=== PATIENT | female | born 1995 | race Two or more races ===

== ENCOUNTER 2017-12-27 21:09 | Emergency (ER) | payer MEDICAID, OTHER ==
[2017-12-27 21:24] VITALS: BP 120/76
--- NOTE | 2017-12-27 21:27 | EDPHY ---
H & P Stated Complaint: cough x 4 days Time Seen by Provider: 12/27/17 21:12 HPI/ROS: Chief Complaint: Cough HPI: 22-year-old woman presenting with several days of sore throat, cough, subjective chills. Cough is productive of yellowish to greenish sputum occasionally. No shortness of breath. No chest pain. No nausea, vomiting, or diarrhea. No abdominal pain. No urinary urgency or frequency. No muscle aches or myalgias. ROS: 10 systems were reviewed and were negative except those elements noted in the HPI. PMH: Denies Social History: No smoking, no alcohol, no recreational drug use Family History: non-contributory Physical Exam: Gen: Awake, Alert, No Distress HEENT: Nose: no rhinorrhea Eyes: PERRLA, EOMI Mouth: Moist mucosa Neck: Supple, no JVD Chest: nontender, lungs clear to auscultation Heart: S1, S2 normal, no murmur Abd: Soft, non-tender, no guarding Back: no CVA tenderness, no midline tenderness Ext: no edema, non-tender Skin: no rash Neuro: CN II-XII intact, Sensation grossly intact, Strength 5/5 in bilateral upper and lower extremities - Personal History LMP (Females 10-55): Now Current Tetanus/Diphtheria Vaccine: Unsure Current Tetanus Diphtheria and Acellular Pertussis (TDAP): Unsure - Medical/Surgical History Hx Asthma: No Hx Chronic Respiratory Disease: No Hx Diabetes: No Hx Cardiac Disease: No Hx Renal Disease: No Hx Cirrhosis: No Hx Alcoholism: No Hx HIV/AIDS: No Hx Splenectomy or Spleen Trauma: No Other PMH: denies - Social History Smoking Status: Never smoked Constitutional: Initial Vital Signs Temperature (C) 37 C 12/27/17 21:20 Heart Rate 97 12/27/17 21:20 Respiratory Rate 15 12/27/17 21:20 Blood Pressure 120/76 12/27/17 21:20 O2 Sat (%) 96 12/27/17 21:20 O2 Delivery Mode Room Air Allergies/Adverse Reactions: No Known Allergies Allergy (Verified 12/31/13 12:37) Home Medications: Medication Instructions Recorded None 07/04/10 Medical Decision Making ED Course/Re-evaluation: 22-year-old female with bronchitis symptoms. Lungs are clear. Vital signs are normal. She is well-appearing. Do not feel that a chest x-ray is indicated at this time. Symptoms consistent with bronchitis. Will discharge with supportive treatment, follow up with primary care. Departure - Departure Disposition: Home, Routine, Self-Care Clinical Impression: Acute bronchitis Condition: Good Instructions: Acute Bronchitis (ED) Additional Instructions: Alternate acetaminophen (1000 mg) with ibuprofen (400 mg) every 4 hours as needed for fevers, chills, aches or pain. Make sure to drink plenty of clear liquids and get plenty of sleep. Follow up with primary care physician in 3-4 days if symptoms are not improving. Return to the emergency department for increasing uncontrolled cough, shortness of breath, uncontrolled fevers or chills, uncontrolled vomiting, or any other concerns. Referrals: TRICIA VERDUGO [Other] - As per Instructions
== END 2017-12-27 21:30 | disposition home or self-care (01) ==
LOC: CED 21:09
DX: J20.9 Acute bronchitis, unspecified (principal)